=== PATIENT | male | born 1980 | race Caucasian/White ===

== ENCOUNTER 2017-01-09 16:00 | Emergency (ER) | payer MEDICAID ==
[2017-01-09 16:03] VITALS: BP 129/77
[2017-01-09] MEDS ORDERED: ENALAPRIL MALEA10 MG PO (19:13)
[2017-01-09] MEDS ORDERED: METFORMIN HCL1000 MG PO (19:13)
== END 2017-01-09 19:59 | disposition home or self-care (01) ==
LOC: ED 16:00
DX: J02.8 Acute pharyngitis due to other specified organisms (principal)